=== PATIENT | male | born 1980 | race American Indian/Alaskan Native ===

== ENCOUNTER 2018-02-21 07:04 | Emergency (ER) | payer SELFPAY ==
[2018-02-21 07:24] VITALS: BP 133/88
--- NOTE | 2018-02-21 08:49 | Emergency Department Report ---
ED Upper Extremity Inj HPI - General Chief Complaint: Extremity Injury, Upper Stated Complaint: BROKEN FINGER Time Seen by Provider: 02/21/18 08:34 Source: patient Mode of arrival: Ambulatory Limitations: No Limitations - History of Present Illness Initial Comments: This is a 37-year-old -[place] male presents with right fifth digit pain status post slamming a car door on finger this morning. Patient reports closing car door and accidentally slamming it on right hand. Patient reports being unable to move all fingers except fifth digit. He decided to come in for evaluation because fifth finger will not straighten out. Patient denies pain, swelling, erythema, numbness or tingling, dizziness, chest pain, and shortness of breath. MD Complaint: Injury to:: right, finger (fifth digit) -: This morning Other Extremity Injury: Fingers: Right (fifth digit) Other Injuries: none Handedness: right Place: outdoors Severity scale (0 -10): 3 Improves With: none Worsens With: movement of extremity Context: direct blow (accidentally slammed car door on finger) Associated Symptoms: denies other symptoms - Related Data Previous Rx's Medication Instructions Recorded Last Taken Type Ibuprofen [Motrin 600 MG tab] 600 mg PO Q8H PRN #15 tablet 02/21/18 Unknown Rx Allergies Allergy/AdvReac Type Severity Reaction Status Date / Time No Known Allergies Allergy Unverified 02/21/18 07:24 ED Review of Systems ROS: Stated complaint: BROKEN FINGER Other details as noted in HPI Constitutional: denies: chills, fever Respiratory: denies: cough, shortness of breath, wheezing Cardiovascular: denies: chest pain, palpitations Gastrointestinal: denies: abdominal pain, nausea, vomiting, diarrhea Musculoskeletal: arthralgia (fifth digit deformity, no pain). denies: back pain , joint swelling Skin: denies: rash, lesions Neurological: denies: headache, weakness, paresthesias Psychiatric: denies: anxiety, depression ED Past Medical Hx - Past Medical History Previous Medical History?: No - Social History Smoking Status: Current Every Day Smoker - Medications Home Medications: Home Medications Medication Instructions Recorded Confirmed Last Taken Type Ibuprofen [Motrin 600 MG tab] 600 mg PO Q8H PRN #15 tablet 02/21/18 Unknown Rx ED Physical Exam - General Limitations: No Limitations General appearance: alert, in no apparent distress - Respiratory Respiratory exam: Present: normal lung sounds bilaterally. Absent: respiratory distress - Cardiovascular Cardiovascular Exam: Present: regular rate, normal rhythm, normal heart sounds. Absent: systolic murmur, diastolic murmur, rubs, gallop - GI/Abdominal GI/Abdominal exam: Present: soft, normal bowel sounds. Absent: organomegaly, mass - Extremities Exam Extremities exam: Present: normal inspection, full ROM, normal capillary refill. Absent: pedal edema, joint swelling, calf tenderness - Expanded Upper Extremity Exam Right Shoulder Exam: Present: normal inspection, full ROM Upper Arm exam: Present: normal inspection, full ROM Elbow exam: Present: normal inspection, full ROM Forearm Wrist exam: Present: normal inspection, full ROM Hand Wrist exam: Present: crepidus. Absent: tenderness, swelling, abrasion, laceration, ecchymosis, deformity, dislocation, erythema, amputation, nail avulsion, subungual hematoma Neuro motor exam: Present: wrist extension intact, thumb opposition intact, thumb IP flexion intact, thumb adduction intact. Absent: fingers 2-5 abduction intact (30/80 active abduction, locked DIP joint, tenderness with passive range of motion, no palpable mass) Neurosensory exam: Present: radial nerve intact, ulnar nerve intact, median nerve intact Vascular: Present: normal capillary refill, radial pulse ED Course Vital Signs 02/21/18 07:20 Temperature 98.2 F Pulse Rate 75 Respiratory 15 Rate Blood Pressure 133/88 [Left] O2 Sat by Pulse 98 Oximetry ED Medical Decision Making - Radiology Data Radiology results: report reviewed Right hand 3 views: History: Pain fifth digit. Findings: There is volar angulation noted at the distal interphalangeal joint fifth finger. No fracture. Impression: Findings as detailed above. - Medical Decision Making This is a 37y.o. male presents with right 5th digit injury s/p accidentally slamming car door on her right hand. Patient was examined by me. Nontoxic- appearing and no acute distress. X-ray of her right fingers obtained and read by radiologist. There is volar angulation noted at the distal interphalangeal joint fifth finger. No fracture. Physical findings susceptible of trigger finger. Splint applied to right fifth finger. Patient informed of results. Start ibuprofen for pain. Plan discussed with patient to discharge home and treat outpatient. He agrees with ER plan. Patient discharged home in stable condition. Follow up with PCP in 2-3 days. Referrals to orthopedic surgery. Critical care attestation.: If time is entered above; I have spent that time in minutes in the direct care of this critically ill patient, excluding procedure time. ED Disposition Clinical Impression: Trigger finger of right hand Qualifiers: Trigger finger location: little finger Qualified Code(s): M65.351 - Trigger finger, right little finger Disposition: TO HOME OR SELFCARE Is pt being admited?: No Does the pt Need Aspirin: No Condition: Stable Instructions: Trigger Finger (ED) Additional Instructions: Take ibuprofen, Tylenol, or naproxen for pain control. Keep pinkie finger immobilized. Avoid any offending activity to right pinkie finger. Apply heat as needed to prevent swelling. Follow-up with primary care provider in 2-3 days. Follow-up with orthopedic surgery from referral. Prescriptions: Ibuprofen [Motrin 600 MG tab] 600 mg PO Q8H PRN #15 tablet PRN Reason: Pain Referrals: [facility] [Outside] - 3-5 Days [facility] [Outside] - 3-5 Days ERROL TREJO MD [Staff Physician] - 3-5 Days Forms: Work/School Release Form(ED) Time of Disposition: 09:34 Print Language: FRISIAN
--- NOTE | 2018-02-21 09:22 | XRay Report ---
Right hand 3 views: History: Pain fifth digit. Findings: There is volar angulation noted at the distal interphalangeal joint fifth finger. No fracture. Impression: Findings as detailed above.
== END 2018-02-21 10:02 | disposition home or self-care (01) ==
LOC: ED 07:04
DX: M65.351 Trigger finger, right little finger (principal); F17.200 Nicotine dependence, unspecified, uncomplicated